=== PATIENT | female | born 1995 | race African-American/Black ===

== ENCOUNTER 2017-06-04 06:23 | Inpatient (IN) | payer MEDICAID, OTHER ==
[2017-06-04] VITALS (24 sets, daily range): BP systolic 107–153; BP diastolic 59–117; PULSE 64–125; RESP 16–20; TEMP 98.1–98.6
[~2017-06-04] VITALS: Ht 160 cm; Wt 84.8 kg
[2017-06-04] MEDS ORDERED: PRENTAB85 PO (06:40)
[2017-06-04] MEDS ORDERED: LACTATED RINGER'S 1000 ML INJ 1,000 ML IV PRN (07:05)
[2017-06-04] MEDS ORDERED: LACTATED RINGER'S 1000 ML INJ 1,000 ML IV SCH (07:05)
[2017-06-04] MEDS ORDERED: OXYTOCIN 30 UNITS-500ML PREMIX 500 ML IV ONE (07:15)
[2017-06-04] MEDS ORDERED: LIDOCAINE HCL 1% 50 ML VIAL INFIL PRN (07:15)
[2017-06-04] MEDS ORDERED: MINERAL OIL 10 ML VIAL TOPICAL PRN (07:15)
[2017-06-04] MEDS ORDERED: CITRIC ACID-SODIUM CITRATE LIQ 30 ML UDC PO SCH (07:15)
[2017-06-04] MEDS ORDERED: LIDOCAINE HCL 1% 50 ML VIAL I-DERMAL PRN (07:15)
[2017-06-04] MEDS ORDERED: SODIUM CHLORID 0.9% 500 ML INJ 500 ML IV PRN (07:15)
[2017-06-04] MEDS ORDERED: ONDANSETRON HCL 4 MG/2 ML VIAL IV PUSH PRN (07:15)
--- NOTE | 2017-06-04 07:21 | HHI.HP ---
History & Physical H&P Patient Name: Obed Quiroz Unit Number: [id number] Date of : 1995 Patient Status: Admitted Inpatient Attending Doctor: Helio Carrasco MD HPI HPI Chief Complaint Contractions Date Seen: Jun 04, 2017 Time Seen: 07:12 Travel History International Travel<30 Days: No Contact w/Intl Traveler<30Days: No Known Affected Area: No History of Present Illness HPI 22-year-old 1 at 41 weeks gestation based on a reported first trimester ultrasound. She reports having leakage of fluid and contractions over the past several hours. She denies bleeding or abnormal discharge other than the fluid leakage. Weeks Gestation: 41 Para: 0 : 1 History (Limited) History Past Medical History Narrative Medical No known allergies No chronic diseases Medical History: Denies Significant Hx Obstetric History Obstetric History Primigravida who initially had care in the [place] area including her first trimester ultrasound. She sees her acid painter in [place] but has no records whatsoever. Past Surgical History Surgical History: No Previous Surgery Family History Family History: Negative Social History Alcohol Use: No Tobacco Use: No Substance Abuse: No Allergies-Medications Allergies-Medications (Allergen,Severity, Reaction): Coded Allergies: acetaminophen (Unverified Allergy, Severe, 06/04/17) Home Meds Reported Medications Vit W/ Ferrous Fumara (Pnv Plus Multivi 27-1 mg) 27 Mg Iron-1 Mg Tab, 1 TAB PO DAILY 06/04/17 ROS Review of Systems Except as stated in HPI: all other systems reviewed are Neg Physical Exam Physical Exam Narrative GENERAL: Well-nourished, well-developed patient. SKIN: Warm and dry. HEAD: Normocephalic and atraumatic. EYES: No scleral icterus. No injection or drainage. ENT: No nasal drainage noted. Mucous membranes pink. Airway patent. NECK: Supple, trachea midline. No JVD. CARDIOVASCULAR: Regular rate and rhythm without murmurs, gallops, or rubs. RESPIRATORY: Breath sounds equal bilaterally. No accessory muscle use. ABDOMEN/GI: Abdomen soft, non-tender, bowel sounds present, no rebound, no guarding Gravid to [-] weeks size Fundal Height: [-] GENITOURINARY: External Genitalia: intact and normal in appearance BUS glands: [Negative-] Cervix: [-] Dilatation: [-5] Effacement: [-100] Station: [-2-] Presentation: [Vertex-] Membranes: [ruptured] Uterine Contractions: [Every 3-] FHT's: Category: [2-] Baseline: [140-] Reactive: [-] Variability: [Moderate-] Decels: [Variable] EXTREMITIES: No cyanosis or edema. BACK: Nontender without obvious deformity. No CVA tenderness. NEUROLOGICAL: Awake and alert. Motor and sensory grossly within normal limits. Five out of 5 muscle strength in all muscle groups. Normal speech. Data Data Data Vital Signs Reviewed: Yes Orders Orders Ob (2e) Additional Admit Info (06/04/17 06:44) Admit To Inpatient (06/04/17 ) Code Status (06/04/17 07:05) Vital Signs (Adult) .Per protocol (06/04/17 07:05) Heart (06/04/17 07:05) Amnioinfusion (06/04/17 07:05) Urinary Catheter Management .ONCE (06/04/17 07:05) Diet Liquid (06/04/17 Breakfast) Lactated Ringer's 1000 Ml Inj (Lr 1000 M (06/04/17 07:05) Lactated Ringer's 1000 Ml Inj (Lr 1000 M (06/04/17 07:05) Sodium Chlorid 0.9% 500 Ml Inj (Ns 500 M (06/04/17 07:15) Sodium Chlor 0.9% 1000 Ml Inj (Ns 1000 M (06/04/17 07:25) Lidocaine 1% Inj (50 Ml) (Xylocaine 1% I (06/04/17 07:15) Citric Acid-Sodium Citrate Liq (Bicitra (06/04/17 07:15) Ondansetron Inj (Zofran Inj) (06/04/17 07:15) Fentanyl Inj (Fentanyl Inj) (06/04/17 07:15) Fentanyl Inj (Fentanyl Inj) (06/04/17 07:15) Complete Blood Count With Diff (06/04/17 07:05) Hold Clot (06/04/17 07:05) Abo/Rh Blood Type (06/04/17 07:05) Urinalysis - C+S If Indicated (06/04/17 07:05) No Care Spec Serology (06/04/17 07:05) Resp Oxygen Non Rebreathe Mask (06/04/17 ) ^ Epidural / Intrathecal Infus (06/04/17 07:05) Oxytocin 30 Units-500ml Premix (Pitocin (06/04/17 07:15) Lidocaine 1% Inj (50 Ml) (Xylocaine 1% I (06/04/17 07:15) Light Mineral Oil (Muri-Lube Oil) (06/04/17 07:15) Inpatient Certification (06/04/17 ) Specimen To Be Collected PRN (06/04/17 07:05) MDM MDM Medical Record Reviewed: No Narrative Course / MDM Assessment: 22-year-old primigravida in early active labor with no documented care Plan: Admit for labor management, she has unknown GBS status so she will be treated based on risk factors if necessary. New OB lab panel. Helio Carrasco MD Jun 04, 2017 07:19 Helio Carrasco MD Jun 04, 2017 07:21
[2017-06-04] MEDS ORDERED: SODIUM CHLOR 0.9% 1000 ML INJ 1,000 ML IV PRN (07:25)
[2017-06-04 08:08] LABS: AUTOMATED NEUTROPHIL # 7.3 TH/MM3 (1.8-7.7); BASOPHIL # 0.2 TH/MM3 (0-0.2); BASOPHIL % 2.1 % (0.0-2.0); HEMATOCRIT 39.8 % (35.0-46.0); LYMPH % 10.9 % (9.0-44.0); MEAN CELL VOLUME 80.7 FL (80.0-100.0); MEAN CORPUSCULAR HEMOGLOBIN 27.3 PG (27.0-34.0); MEAN CORPUSCULAR HGB CONC 33.8 % (32.0-36.0); MONO % 6.6 % (0.0-8.0); NEUT % 80.4 % (16.0-70.0); PLATELET COUNT 141 TH/MM3 (150-450); RED BLOOD COUNT 4.93 MIL/MM3 (4.00-5.30); RED CELL DISTRIBUTION WIDTH 15.9 % (11.6-17.2)
[2017-06-04 08:11] LABS: HEMO FLAGS AUTO DIFF
[2017-06-04 08:37] LABS: PLATELET ESTIMATE SMEAR LOW (NORMAL); PLATELET MORPHOLOGY ENLARGED (NORMAL); SCAN/DIFF AUTO DIFF CONFIRMED
--- NOTE | 2017-06-04 10:48 | PD.OB.DELI ---
Weeks gestation: 41 Gest age assessed date: Jun 04, 2017 Gest age assessed time: 09:00 Pt started active labor?: Yes Active labor start date: Jun 04, 2017 Active labor start time: 01:00 Medical induction of labor?: No Artificial rupture of membrane: No Anesthesia: Lidocaine local to perineum Episiotomy: None Vaginal Delivery: Normal Presentation: Occiput anterior Nuchal Cord: None Delayed cord clamping (45 sec): Yes Infant: Male Delivery date: Jun 04, 2017 Delivery time: 10:05 One Minute : 8 Five Minute : 9 Weight: [id number] Placenta: Spontaneous delivery, Intact Laceration: Perineal laceration, 2 deg Repair: Chromic running Estimated blood loss: 200 Additional Information perineal body with extensive condyloma , small amount of warts in upper vagina near cx Kings Chavis II, MD Jun 04, 2017 10:48
[2017-06-04] MEDS ORDERED: WITCH HAZEL 50%/GLYCERIN 12.5% 40 PAD JAR TOPICAL PRN (11:00)
[2017-06-04] MEDS ORDERED: SODIUM CHLORIDE 0.9% FLUSH 10 ML FLUSH IV FLUSH PRN (11:00)
[2017-06-04] MEDS ORDERED: OXYTOCIN 30 UNITS-500ML PREMIX 500 ML IV SCH (11:00)
[2017-06-04] MEDS ORDERED: ACETAMINOPHEN 325 MG TAB PO PRN (11:00)
[2017-06-04] MEDS: IBUPROFEN 600 MG TAB PO PRN (11:20)
[2017-06-04] MEDS ORDERED: BENZOCAINE 20% TOPICAL SPRAY 60 ML CAN TOPICAL PRN (12:00)
[2017-06-04] MEDS ORDERED: ONDANSETRON ODT 4 MG TAB PO PRN (12:00)
[2017-06-04] MEDS ORDERED: DOCUSATE SODIUM 50 MG/SENNA 8.6 MG TAB PO PRN (12:00)
[2017-06-04] MEDS ORDERED: ALUMINUM/MAGNESIUM/SIMETH 30 ML CUP PO PRN (14:00)
[2017-06-04 14:34] LABS: BACTERIA, URINE OCC /hpf; BLOOD, URINE LARGE (NEG); COMMENT (UR) CULTURE INDICATED; CULTURE IF INDICATED CULTURE INDICATED; GLUCOSE,URINE NEG (NEG); KETONE, URINE 10 mg/dL (NEG); NITRITE,URINE NEG (NEG)
[2017-06-04 14:35] LABS: URINE COLOR LIGHT-RED (YELLW/STRAW)
[2017-06-04] MEDS ORDERED: KETOROLAC TROMETHAMINE 30 MG/ML (IVP) VIAL IV PUSH ONE (16:00)
[2017-06-04] MEDS ORDERED: MEASLES, MUMPS, RUBELLA VACCINE 0.5 ML VIAL SQ ONE (16:00)
[2017-06-04] MEDS ORDERED: DIPHTH/TETANUS/ACEL PERTUSSIS (BOOSTER) 0.5 ML VIAL/PFS IM ONE (16:00)
[2017-06-04] MEDS ORDERED: SODIUM CHLORIDE 0.9% FLUSH 10 ML FLUSH IV FLUSH SCH (21:00)
[2017-06-04] MEDS ORDERED: ZOLPIDEM TARTRATE 5 MG TAB PO PRN (21:00)
[2017-06-04] MEDS ORDERED: METHYLERGONOVINE MALEATE 0.2 MG/ML VIAL IM SCH (22:15)
[2017-06-04] MEDS ORDERED: METHYLERGONOVINE MALEATE 0.2 MG/ML VIAL ONE (22:21)
[2017-06-05] MEDS ORDERED: MORPHINE SULFATE 4 MG/ML INJ IV PUSH ONE (00:15)
[2017-06-05] MEDS ORDERED: OXYTOCIN 30 UNITS-500ML PREMIX 500 ML ONE (00:27)
[2017-06-05] MEDS: IBUPROFEN 600 MG TAB PO PRN ×3 (04:00→19:13)
[2017-06-05 08:35] VITALS: BP 113/55; PULSE 96; RESP 18; TEMP 98
[2017-06-05] MEDS ORDERED: oxyCODONE/ACETAMINOPHEN 5 MG/325 MG TAB PO PRN (09:15)
--- NOTE | 2017-06-05 09:33 | HHI.OB ---
Subjective Post Day: 1 Remarks Patient is day #1. Pt reports feeling well this morning. Pain minimal. Ambulating well. Minimal lochia. Tolerating PO without nausea/ vomiting. Pt is . No breast tenderness. Passing gas, no bowel movement. Denies any chest pain, SOB, leg pain. Objective Vitals/I&O Vital Signs Date Time Temp Pulse Resp B/P (MAP) Pulse Ox O2 Delivery O2 Flow Rate FiO2 06/05/17 08:35 98.0 96 18 06/05/17 08:35 113/55 (74) 06/04/17 22:35 20 06/04/17 22:35 120/70 (87) 06/04/17 22:35 108 06/04/17 22:35 98.5 06/04/17 22:00 20 06/04/17 22:00 115 113/73 (86) 06/04/17 19:30 125 116/77 (90) 06/04/17 19:30 98.2 20 06/04/17 12:35 98.2 64 16 131/79 (96) 06/04/17 12:01 153/82 (105) 06/04/17 12:01 67 06/04/17 11:45 68 148/84 (105) 06/04/17 11:31 86 107/78 (88) 06/04/17 11:30 17 06/04/17 11:17 65 138/77 (97) 06/04/17 11:13 18 06/04/17 11:01 70 133/117 (122) 06/04/17 11:00 17 06/04/17 10:46 79 137/61 (86) 06/04/17 10:45 98.1 06/04/17 10:39 71 130/94 (106) 06/04/17 10:38 18 06/04/17 09:45 18 Objective Remarks GENERAL: Well-nourished, well-developed patient. CARDIOVASCULAR: Regular rate and rhythm without murmurs, gallops, or rubs. RESPIRATORY: Breath sounds equal bilaterally. No accessory muscle use. ABDOMEN/GI: Abdomen soft, non-tender. Fundus: Firm, non-tender at umbilicus. GENITOURINARY: Light to moderate bleeding. EXTREMITIES: No cyanosis or edema, non-tender, without signs of DVT. Medications and IVs Current Medications Medications (Trade) Dose Ordered Sig/Emeterio Route Start Time Stop Time Status Last Admin (NS Flush) 2 ml BID IV FLUSH 06/04/17 21:00 (NS Flush) 2 ml UNSCH PRN IV FLUSH 06/04/17 11:00 (Motrin) 600 mg Q6H PRN PO 06/04/17 12:00 06/05/17 04:00 (Americaine 20% Top Spr) 1 spray Q4H PRN TOPICAL 06/04/17 12:00 06/04/17 14:58 (Tucks Pads) 1 applic QID PRN TOPICAL 06/04/17 11:00 06/04/17 14:58 (Proimse-Colace) 2 tab Q12HR PRN PO 06/04/17 12:00 06/04/17 14:58 (Ambien) 5 mg HS PRN PO 06/04/17 21:00 (Mag-Al Plus Susp Liq) 15 ml Q8HR PRN PO 06/04/17 14:00 (Zofran Odt) 4 mg Q6H PRN PO 06/04/17 12:00 (Percocet 5-325 Mg) 1 tab Q4H PRN PO 06/05/17 09:15 (Percocet 5-325 Mg) 2 tab Q4H PRN PO 06/05/17 09:15 Assessment/Plan Assessment and Plan 22 y/o PPD#1 -Continue routine care -Motrin and Percocet PRN pain -Continue - control, pt is undecided -Pt will need f/u appt in 6 weeks with OB -Discharge likely tomorrow dw Dr. Partha Ragland,Luciano Styles MD, R2 Jun 05, 2017 09:33
[2017-06-05] MEDS: oxyCODONE/ACETAMINOPHEN 5 MG/325 MG TAB PO PRN ×2 (10:26→19:13)
[2017-06-05 20:40] VITALS: BP 137/69; PULSE 98; RESP 18; TEMP 98
[2017-06-06] MEDS ORDERED: SENN1TAB PO ×2 (06:53→07:14)
[2017-06-06] MEDS ORDERED: IBUP-232 PO ×2 (06:53→07:14)
[2017-06-06] MEDS: IBUPROFEN 600 MG TAB PO PRN ×3 (07:50→23:14)
[2017-06-06] MEDS: oxyCODONE/ACETAMINOPHEN 5 MG/325 MG TAB PO PRN ×3 (07:51→23:14)
[2017-06-06 08:00] VITALS: BP 120/64; PULSE 98; RESP 18; TEMP 101.9
[2017-06-06 09:10] VITALS: TEMP 99.7
--- NOTE | 2017-06-06 09:43 | HHI.OB ---
Subjective Post Day: 2 Remarks day #2. Fever of 100.9 this AM. Pain minimal. Decreased lochia. No breast tenderness. She is feeding the baby via breast. Appetite good. No nausea or vomiting. Passing flatus. Had bowel movement. Ambulating well. Denies calf pain, shortness of breath, or cough. Otherwise, she is doing well this morning and has no other complaints. (Keisha Abbott MD R1) Objective Vitals/I&O Vital Signs Date Time Temp Pulse Resp B/P (MAP) Pulse Ox O2 Delivery O2 Flow Rate FiO2 06/06/17 09:10 99.7 06/06/17 08:00 101.9 98 18 120/64 (82) 06/05/17 20:40 98.0 98 18 137/69 (91) Objective Remarks GENERAL: Well-nourished, well-developed patient. CARDIOVASCULAR: Regular rate and rhythm without murmurs, gallops, or rubs. RESPIRATORY: Breath sounds equal bilaterally. No accessory muscle use. ABDOMEN/GI: Abdomen soft, non-tender. Fundus: Firm, non-tender at umbilicus. GENITOURINARY: Light to moderate bleeding. EXTREMITIES: No cyanosis or edema, non-tender, without signs of DVT. Medications and IVs Current Medications Medications (Trade) Dose Ordered Sig/Emeterio Route Start Time Stop Time Status Last Admin (NS Flush) 2 ml BID IV FLUSH 06/04/17 21:00 (NS Flush) 2 ml UNSCH PRN IV FLUSH 06/04/17 11:00 (Motrin) 600 mg Q6H PRN PO 06/04/17 12:00 06/06/17 07:50 (Americaine 20% Top Spr) 1 spray Q4H PRN TOPICAL 06/04/17 12:00 06/04/17 14:58 (Tucks Pads) 1 applic QID PRN TOPICAL 06/04/17 11:00 06/04/17 14:58 (Promise-Colace) 2 tab Q12HR PRN PO 06/04/17 12:00 06/04/17 14:58 (Ambien) 5 mg HS PRN PO 06/04/17 21:00 (Mag-Al Plus Susp Liq) 15 ml Q8HR PRN PO 06/04/17 14:00 (Zofran Odt) 4 mg Q6H PRN PO 06/04/17 12:00 (Percocet 5-325 Mg) 1 tab Q4H PRN PO 06/05/17 09:15 (Percocet 5-325 Mg) 2 tab Q4H PRN PO 06/05/17 09:15 06/06/17 07:51 (Keisha Abbott MD R1) Assessment/Plan Assessment and Plan 22 y/o PPD#2 s/p vaginal -Continue routine care -Motrin and Percocet PRN pain -Continue - control, pt is undecided -Pt will need f/u appt in 6 weeks with OB -Due to low-grade fever, will watch today and discharge this PM dw Dr. Glover (Keisha Abbott MD R1) Attending Attestation PPD #2 low grade fever, asymptomatic UA was negative on admission GBS negative, uncomplicated continue pp care and observation patient seen and examined. d/w Dr. Ragland and Dr. Abbott (Roberta Glover MD) Keisha Abbott MD R1 Jun 06, 2017 09:43 Roberta Glover MD Jun 08, 2017 08:09
[2017-06-06 12:20] VITALS: TEMP 98
[2017-06-06] MEDS ORDERED: ceFAZolin 2 GM PREMIX 50 ML IV SCH (13:00)
[2017-06-06] MEDS ORDERED: AMPICILLIN-SULBACTAM INJ 3 GM VIAL IV SCH ×2 (13:45→19:00)
[2017-06-06 15:00] VITALS: BP 135/78; PULSE 109; RESP 18; TEMP 99.8
[2017-06-06] MEDS ORDERED: AMPICILLIN/SULBAC 1500 MG/NS 100 ML IV SCH ×2 (16:00)
[2017-06-06] MEDS ORDERED: AMPICILLIN-SULBACTAM INJ 1,500 MG in SODIUM CHLORIDE 0.9% INJ 100 ML IV SCH ×2 (19:00→20:00)
[2017-06-06 19:40] VITALS: BP 106/65; PULSE 103; RESP 20; TEMP 98.1
[2017-06-06] MEDS ORDERED: AMPICILLIN-SULBACTAM INJ 1,500 MG VIAL IV SCH (20:00)
[2017-06-07] MEDS: AMPICILLIN/SULBAC 1500 MG/NS 100 ML IV SCH ×4 (03:20→08:31)
[2017-06-07] MEDS: IBUPROFEN 600 MG TAB PO PRN ×2 (05:37→11:21)
[2017-06-07] MEDS: oxyCODONE/ACETAMINOPHEN 5 MG/325 MG TAB PO PRN ×2 (05:38→11:20)
[2017-06-07 08:30] VITALS: BP 110/69; PULSE 80; RESP 20; TEMP 98
--- NOTE | 2017-06-07 08:40 | HHI.OB ---
Subjective Post Day: 3 Remarks day #3. AFVSS overnight. Afebrile since 0800 yesterday morning. Denies any fever/chills. Pain minimal. Decreased lochia. Denies dysuria. No breast tenderness. She is feeding the baby via breast. Appetite good. No nausea or vomiting. Endorses flatus. No bowel movement. Ambulating well. Denies calf pain, shortness of breath, or cough. Otherwise, she is doing well this morning and has no other complaints. Objective Vitals/I&O Vital Signs Date Time Temp Pulse Resp B/P (MAP) Pulse Ox O2 Delivery O2 Flow Rate FiO2 06/06/17 19:40 98.1 103 20 106/65 (79) 06/06/17 15:00 99.8 109 18 135/78 (97) 06/06/17 12:20 98.0 06/06/17 09:10 99.7 Objective Remarks GENERAL: Well-nourished, well-developed patient. CARDIOVASCULAR: Regular rate and rhythm without murmurs, gallops, or rubs. RESPIRATORY: Breath sounds equal bilaterally. No accessory muscle use. ABDOMEN/GI: Abdomen soft, non-tender. Fundus: Firm, non-tender at umbilicus. GENITOURINARY: Light to moderate bleeding. EXTREMITIES: No cyanosis or edema, non-tender, without signs of DVT. Medications and IVs Current Medications Medications (Trade) Dose Ordered Sig/Emeterio Route Start Time Stop Time Status Last Admin (NS Flush) 2 ml BID IV FLUSH 06/04/17 21:00 (NS Flush) 2 ml UNSCH PRN IV FLUSH 06/04/17 11:00 (Motrin) 600 mg Q6H PRN PO 06/04/17 12:00 06/07/17 05:37 (Americaine 20% Top Spr) 1 spray Q4H PRN TOPICAL 06/04/17 12:00 06/04/17 14:58 (Tucks Pads) 1 applic QID PRN TOPICAL 06/04/17 11:00 06/04/17 14:58 (Promise-Colace) 2 tab Q12HR PRN PO 06/04/17 12:00 06/04/17 14:58 (Ambien) 5 mg HS PRN PO 06/04/17 21:00 (Mag-Al Plus Susp Liq) 15 ml Q8HR PRN PO 06/04/17 14:00 (Zofran Odt) 4 mg Q6H PRN PO 06/04/17 12:00 (Percocet 5-325 Mg) 1 tab Q4H PRN PO 06/05/17 09:15 (Percocet 5-325 Mg) 2 tab Q4H PRN PO 06/05/17 09:15 06/07/17 05:38 Ampicillin Sodium/ Sulbactam Sodium 1500 mg/Sodium Chloride 100 ml @ 200 mls/hr Q6H IV 06/07/17 02:00 06/07/17 08:31 Assessment/Plan Assessment and Plan 22 y/o PPD#3 s/p vaginal -Continue routine care -Motrin and Percocet PRN pain -Continue - control, pt is undecided -Pt will need f/u appt in 6 weeks with OB -Pt afebrile 24 hours, discharge today dw Luciano Lainez MD, R2 Jun 07, 2017 08:40
--- NOTE | 2017-06-07 08:49 | HHI.DCPOC ---
Discharge Care Plan Diagnosis: (1) care following vaginal delivery Report Symptoms to Your Doctor -Temperature above 100.5 degrees -Redness, of incision or excessive or foul smelling drainage -Unusual pain or calf pain -Increased vaginal bleeding -Painful or difficulty urinating -Feelings of extreme sadness or anxiety after 2 weeks Goals to Promote Your Health * To prevent worsening of your condition and complications * To maintain your health at the optimal level Directions to Meet Your Goals Take your medications as prescribed Follow your dietary instruction Follow activity as directed Ensure plenty of rest for recovery Drink fluids for hydration Keep your appointments as scheduled Take your immunizations and boosters as scheduled If your symptoms worsen call your PCP, if no PCP go to Urgent Care Center or Emergency Room Smoking is Dangerous to Your Health. Avoid second hand smoke Call the 24-hour crisis hotline for domestic abuse at Keisha Abbott MD R1 Jun 07, 2017 08:49
[2017-06-07] MEDS ORDERED: OXYC1TAB63 PO (09:54)
[2017-06-08 08:52] LABS: BATH SALTS (MDPV) UR NEG (NEG); ECSTASY (MDMA) UR NEG (NEG); GABAPENTIN UR NEG (NEG); HEROIN (6-ACETYLMORPHINE) UR NEG (NEG); HYDROMORPHONE U NEG (NEG); K2 SPICE UR NEG (NEG); OBMETHADONE UR NEG (NEG); PHENCYCLIDINE URINE NEG (NEG)
== END 2017-06-07 12:53 | disposition home or self-care (01) | DRG 774 ==
LOC: HOBED 06:23 → H2EB 06:44 → H1EA 13:00
PROVIDERS: ADMIT Obstetrics & Gynecology; ATTEND Obstetrics & Gynecology
PROC: 10E0XZZ Delivery of Products of Conception, External Approach (ICD-10-PCS; principal; 2017-06-04)
PROC: 0KQM0ZZ Repair Perineum Muscle, Open Approach (ICD-10-PCS; 2017-06-04)
DX: O48.0 Post-term pregnancy (principal); O98.32 Other infections with a predominantly sexual mode of transmission complicating childbirth; O86.4 Pyrexia of unknown origin following delivery; A63.0 Anogenital (venereal) warts; O70.1 Second degree perineal laceration during delivery; Z37.0 Single live birth; Z3A.41 41 weeks gestation of pregnancy; Z88.6 Allergy status to analgesic agent
CPT/HCPCS: 76937; 80307; 81001; 84112; 85025; 85461; 86703; 86850; 86900; 86901; 87086; 90384; 90715; 99285; G0481; J0295; J0690; J1885; J2210; J2270; J2590; J2790; J3010; J7120